=== PATIENT | female | born 1960 | race Hispanic/Latino ===

== ENCOUNTER 2016-05-21 15:36 | Emergency (ER) | payer SELFPAY ==
--- NOTE | 2016-05-21 16:09 | Emergency Department Report ---
Chief Complaint: Fall Stated Complaint: ARTHRITIS/SWOLLEN KNEES/PAIN Time Seen by Provider: 05/21/16 16:08 - HPI History of Present Illness: 56 y/o female complain of bilateral knee pain .pt family member state that the patient was laying on the floor for 12 hours after brother laid her down to keep her from falling .pt state that she is having knee pain and has not had "her knee drain since October" .pt is unable to stand .family state pt normal walk with a cane .pt is oriented to self and place but unaware of circumstance .pt family member state that she current taking alprazolam and oxycodone prior to arrival . - ROS Review of Systems: per HPI - Exam Vital Signs: Vital Signs 05/21/16 15:43 Temperature 98.4 F Pulse Rate 112 H Respiratory 16 Rate Blood Pressure 110/65 O2 Sat by Pulse 100 Oximetry Physical Exam: GENERAL: The patient is well-developed and well-nourished. Patient is in NAD. HENT: Normocephalic. Atraumatic. Patient has moist mucous membranes. Throat: No erythema, swelling or exudates. EYES: Extraocular motions are intact, PERRL NECK: Supple. No meningitic signs are noted. There is no adenopathy noted. CHEST/LUNGS: Clear to auscultation bilaterally. No wheezing, rales or rhonchi noted. There is no respiratory distress noted. HEART/CARDIOVASCULAR: Regular rate and rhythm. Normal S1 S2. No murmurs, rubs , clicks, or gallops. ABDOMEN: Abdomen is soft, nontender.. Bowel sounds normoactive. There is no abdominal distention. Negative rebound tenderness. : Deferred. SKIN: There is no rash. There is no edema. There is no diaphoresis. NEURO: The patient is A&Ox3. The patient has no focal neurologic deficits. MUSCULOSKELETAL: There is no tenderness or deformity. There is no limitation range of motion.bilateral edema noted to knees .pt unable to stand PSYCH: Pt has appropriate mood and affect. MSE screening note: Focused history and physical exam performed. Due to findings the following was ordered: ED Disposition for MSE Condition: Stable
[2016-05-21 17:19] LABS: Basophils % (Auto) 0.5 % (0.0-1.8); Eosinophils % (Auto) 0.8 % (0.0-4.3); Hematocrit 39.6 % (30.3-42.9); Mean Corpuscular HGB Conc 33 % (30-34); Mean Corpuscular Hemoglobin 29 pg (28-32); Mean Corpuscular Volume 87 fl (79-97); Platelet Count 253 K/mm3 (140-440); Red Blood Count 4.56 M/mm3 (3.65-5.03); Red Cell Distribution Width 14.4 % (13.2-15.2); White Blood Count 8.4 K/mm3 (4.5-11.0)
[2016-05-21 17:34] LABS: INR 1.11 (0.87-1.13)
[2016-05-21 17:35] LABS: Partial Thromboplastin Time 35.3 Sec. (24.2-36.6)
[2016-05-21 17:46] LABS: Alanine Aminotransferase 44 units/L (7-56); Albumin 3.7 g/dL (3.9-5); Albumin/Globulin Ratio 1.1 %; Alkaline Phosphatase 124 units/L (35-129); BUN/Creatinine Ratio 32.85; Bilirubin,Total 0.4 mg/dL (0.1-1.2); Blood Urea Nitrogen 23 mg/dL (7-17); Calcium 9.5 mg/dL (8.4-10.2); Carbon Dioxide 23 mmol/L (22-30); Chloride 98.7 mmol/L (98-107); Glucose 100 mg/dL (65-100); Potassium 4.7 mmol/L (3.6-5.0); Sodium 138 mmol/L (137-145); Total Protein 7.2 g/dL (6.3-8.2)
[2016-05-21 17:55] LABS: Anion Gap 21 mmol/L
[2016-05-21] MEDS ORDERED: TYLENOL PO ONE (18:10)
[2016-05-21] MEDS ORDERED: TORADOL IV ONE (19:25)
[2016-05-21] MEDS ORDERED: NACL 0.9% 1000 ML 1,000 ML IV ONE ×2 (19:25→22:45)
[2016-05-21] MEDS ORDERED: ZOFRAN IV ONE ×2 (19:25→23:38)
--- NOTE | 2016-05-21 19:32 | Emergency Department Report ---
HPI - General Chief Complaint: Fall Time Seen by Provider: 05/21/16 17:47 - HPI HPI: The patient is a 51-year-old female with a history of chronic knee and foot pain , multiple previous lower extremity surgeries, who presents for evaluation of pain status post fall. Per the patient her daughter, and the patient fell this morning upon awaking while attempting to ablate to the bathroom. She typically uses a walker but did not do so this morning. She states that she fell forward and landed on her knees, striking both knees on the ground, sustaining injury to both knees. She states that since her fall she has experienced moderate to severe pain in the left knee, aching in quality, exacerbated with movement of the leg, and mild pain to the right ankle, exacerbated with movement. The patient denies trauma to the head, headache, syncope, chest pain, dyspnea, abdominal pain, back pain, paresthesias, motor deficit. ED Review of Systems ROS: Stated complaint: ARTHRITIS/SWOLLEN KNEES/PAIN Other details as noted in HPI Constitutional: denies: fever ENT: denies: throat or neck pain Respiratory: denies: cough, shortness of breath Cardiovascular: denies: chest pain Endocrine: denies unexplained weight loss or gain Gastrointestinal: denies: abdominal pain, nausea Genitourinary: denies: dysuria Musculoskeletal: reports left knee and rt ankle pain Skin: denies: rash Neurological: denies: headache Hematological/Lymphatic: denies: easy bleeding or easy bruising Psych: denies sadness or hopelessness Physical Exam - Physical Exam Vital Signs: Vital Signs 05/21/16 05/21/16 15:43 18:05 Temperature 98.4 F Pulse Rate 112 H 109 H Respiratory 16 20 Rate Blood Pressure 110/65 O2 Sat by Pulse 100 100 Oximetry Physical Exam: General: well-nourished, well-developed, no acute distress, patient morbidly obese, Head: Normocephalic, atraumatic Eyes: normal sclera ENT: Mucous membranes are pink and moist Neck: trachea midline, neck supple, No neck stiffness, no cervical adenopathy, there is no midline cervical spinous tenderness to palpation present, Respiratory: Breath sounds equal bilaterally, no wheezing, rales, or rhonchi Cardio: S1 and S2 present, no murmurs, rubs, gallops, capillary refill is brisk Abdomen: Normoactive bowel sounds, soft abdomen, no rigidity, no guarding or rebound tenderness Musc: Inspection of the left knee unremarkable, left knee tender to palpation, anterior drawer sign negative, [place]'s negative, procedure sign negative, distal sensation and motor function intact, inspection of the right ankle unremarkable, tenderness to palpation presents to the right medial malleolus, sensation and motor function distally intact, distal pulses intact bilaterally There is no midline thoracic or lumbar spinous tenderness to palpation present, no spinous step-off or obvious deformity as well Skin: No rash Neuro: no facial drooping, normal speech Psych: Normal affect ED Course Vital Signs 05/21/16 05/21/16 15:43 18:05 Temperature 98.4 F Pulse Rate 112 H 109 H Respiratory 16 20 Rate Blood Pressure 110/65 O2 Sat by Pulse 100 100 Oximetry ED Medical Decision Making - Lab Data Result diagrams: 05/21/16 16:35 05/21/16 16:35 - Medical Decision Making The patient was seen and examined by myself. The patient is placed on a cardiac exercise specialist and continuous pulse ox. On initial evaluation, the patient was found to be in no distress. Evaluation orders were placed. The patient is given 2 L normal saline fluid bolus for treatment of dehydration. The patient is given a tablet of Tylenol for pain. Lab results were grossly unremarkable. CAT scan of the head is negative for acute intracranial disease process. X-ray of the left knee and right ankle are negative for acute fractures or dislocations. The patient was reevaluated and reported that their symptoms were markedly improved. The patient is able to stand and assist with transfer to a wheelchair. The patient is stable for discharge with outpatient follow-up. The patient is given follow-up and return instructions. The patient expressed understanding and agreed with the plan. The patient is discharged in stable condition. Critical care attestation.: If time is entered above; I have spent that time in minutes in the direct care of this critically ill patient, excluding procedure time. ED Disposition Clinical Impression: Dehydration Knee pain, acute Qualifiers: Laterality: bilateral Qualified Code(s): M25.561 - Pain in right knee Fall from slip, trip, or stumble Qualifiers: Encounter type: initial encounter Qualified Code(s): W01.0XXA - Fall on same level from slipping, tripping and stumbling without subsequent striking against object, initial encounter Disposition: DISCHARGED TO HOME OR SELFCARE Is pt being admited?: No Does the pt Need Aspirin: No Condition: Stable Instructions: Arthralgia (ED), Musculoskeletal Pain (ED), Fall Prevention for Older Adults (ED) Additional Instructions: Follow up with one of the orthopedic surgeons that have been referred to you. Referrals: JOHN DECKER MD [Staff Physician] - 3-5 Days GREGORY GATES MD [Staff Physician] - 3-5 Days Time of Disposition: 19:26
[2016-05-21 19:54] LABS: Bilirubin,Urine NEG (Negative); Blood,Urine NEG (Negative); Ketones,Urine NEG (Negative); Leukocyte Esterase,Urine NEG (Negative); Nitrite,Urine NEG (Negative); Protein,Urine <15 mg/dL mg/dL (Negative); Urobilinogen,Urine < 2.0 mg/dL (<2.0)
[2016-05-21] MEDS ORDERED: VITAMIN B-1 100 MG, FOLVITE 1 MG, INFUVITE 10 ML in NACL 0.9% 1000 ML 1,000 ML IV ONE (21:22)
[2016-05-21] MEDS ORDERED: NACL 0.9% 1000 ML 1,000 ML ONE (22:53)
[2016-05-21 23:18] LABS: Urine Drugs of Abuse Note Disclamer
[2016-05-21] MEDS ORDERED: ZOFRAN ONE (23:26)
[2016-05-21] MEDS ORDERED: NARCAN 2 MG/2 ML ONE (23:26)
[2016-05-22 00:09] VITALS: BP 113/66
[2016-05-22] MEDS ORDERED: NARCAN 2 MG/2 ML IV ONE (00:11)
--- NOTE | 2016-05-22 08:35 | XRay Report ---
Right ankle: No fractures or dislocations identified in the ankle. No ankle swelling and no joint effusion identified. There is mild edema of the soft tissues above the ankle. There is good preservation of the ankle joint structures. There is partial visualization of the foot demonstrating multiple metatarsal amputations with hardware overlying the first metatarsal. Impression: Lower leg swelling above the ankle. No acute ankle findings. Left knee: Large periarticular spurs are identified involving both medial and lateral compartments as well as the patella articulation. The joint spaces are severely narrowed however the articular margins appeared generally smooth. No subluxation identified. The bones appear generally well mineralized. There is a small suprapatellar effusion. Impressions: Severe degenerative changes. No acute findings suspected.
--- NOTE | 2016-05-24 10:55 | Cat Scan Report ---
FINAL REPORT EXAM: CT HEAD/BRAIN WO CON HISTORY: headache TECHNIQUE: Standard unenhanced CT of the head at 5.0 millimeter axial increments. PRIORS: None. FINDINGS: The ventricular system is normal in size and configuration. There is no evidence for parenchymal volume loss. There is no evidence for mass lesion, mass effect, midline shift, acute intracranial hemorrhage, or acute ischemia/ infarction. No evidence for acute skull fracture is seen. Visualized paranasal sinuses are clear. No abnormality in the overlying scalp soft tissues is seen. IMPRESSION: Negative CT of the head. No acute intracranial process noted.
== END 2016-05-21 23:55 | disposition home or self-care (01) ==
LOC: ED 15:36
DX: M25.561 Pain in right knee (principal); E86.0 Dehydration; W01.0XXA Fall on same level from slipping, tripping and stumbling without subsequent striking against object, initial encounter; Y93.9 Activity, unspecified; Y92.9 Unspecified place or not applicable; Y99.9 Unspecified external cause status
CPT/HCPCS: 36415; 70450; 73562; 73610; 80053; 81001; 82550; 83880; 85025; 85610; 85730; 96361; 96365; 96375; 96376; 99285; G0479; J1885; J2310; J2405; J3411; J7030; 80307